=== PATIENT | female | born 1965 | race African-American/Black ===

== ENCOUNTER 2019-01-06 15:13 | Emergency (ER) | payer SELFPAY ==
[2019-01-06] MEDS ORDERED: ONDANSETRON HCL INJ/PF 4 MG/2 ML SDV IV ONE (19:38)
[2019-01-06] MEDS ORDERED: NORMAL SALINE 1000 ML 1,000 ML IV ONE (19:38)
--- NOTE | 2019-01-06 19:39 | ER Document Report ---
ED Medical Screen (RME) - General Chief Complaint: Nausea/Vomiting Stated Complaint: NAUSEA Time Seen by Provider: 01/06/19 19:33 Primary Care Provider: KENNETH BLAKE [Primary Care Provider] - Follow up as needed TRAVEL OUTSIDE OF THE [place] IN LAST 30 DAYS: No - HPI Notes: 01/06/19 19:38 Patient is a 53-year-old female that presents to the emergency department for chief complaint of diarrhea, nausea, vomiting and abdominal pain. Patient reports diarrhea from December 23 - December 26. The diarrhea has now stopped and she has developed nausea and vomiting. She reports poor oral intake and decreased appetite. She was seen at an outside facility yesterday and states she had blood work done. She reports they told her she had thyroid disorder but she is not sure what that means and they did not prescribe her medicine for that. She also states they gave her Phenergan which is not helping. She is here for a second opinion. ROS: GENERAL: Denies fever of chills CV: Denies chest pain PHYSICAL EXAMINATION: GENERAL: Well-appearing, well-nourished and in no acute distress. HEAD: Atraumatic, normocephalic. EYES: Pupils equal round extraocular movements intact, conjunctiva are normal. ENT: Nares patent NECK: Normal range of motion LUNGS: No respiratory distress Musculoskeletal: Normal range of motion NEUROLOGICAL: Normal speech, normal gait. PSYCH: Normal mood, normal affect. MDM: Patient seen and examined for rapid initial assessment. Vital signs reviewed. A comprehensive ED assessment and evaluation of the patient, analysis of test results and completion of the medical decision making process will be conducted by additional ED providers. - Related Data Allergies/Adverse Reactions: tramadol Adverse Reaction (Verified 01/06/19 19:31) Past Medical History Renal/ Medical History: Denies: Hx Peritoneal Dialysis Physical Exam - Vital signs Vitals: Temp Pulse Resp BP Pulse Ox 98.4 F 76 17 113/68 100 01/06/19 15:29 01/06/19 15:29 01/06/19 15:29 01/06/19 15:29 01/06/19 15:29 Course - Vital Signs Vital signs: Temp Pulse Resp BP Pulse Ox 98.4 F 76 17 113/68 100 01/06/19 15:29 01/06/19 15:29 01/06/19 15:29 01/06/19 15:29 01/06/19 15:29 Doctor's Discharge - Discharge Referrals: LOCALMD,NO [Primary Care Provider] - Follow up as needed
[2019-01-06 20:27] LABS: ABSOLUTE BASOPHILS # (AUTO) 0.1 10^3/uL (0.0-0.2); ABSOLUTE EOSINOPHILS # (AUTO) 0.1 10^3/uL (0.0-0.6); ABSOLUTE MONOCYTES (AUTO) 1.4 10^3/uL (0.1-1.4); ABSOLUTE NEUT (AUTO) 11.7 10^3/uL (1.7-8.2); BASOPHILS % (AUTO) 0.5 % (0-2); EOSINOPHILS % (AUTO) 0.5 % (0-6); HEMATOCRIT 45.1 % (36.0-47.0); HEMOGLOBIN 14.9 g/dL (12.0-15.5); LYMPHOCYTES % (AUTO) 18.5 % (13-45); MEAN CORPUSCULAR HEMOGLOBIN 26.6 pg (27.0-33.4); MEAN CORPUSCULAR VOLUME 81 fl (80-97); MONOCYTES % (AUTO) 8.6 % (3-13); PLATELET COUNT 301 10^3/uL (150-450); RED BLOOD COUNT 5.61 10^6/uL (3.72-5.28); RED CELL DISTRIBUTION WIDTH 13.1 % (11.5-14.0); SEGMENTED NEUTROPHILS % (AUTO) 71.9 % (42-78); TOTAL CELLS COUNTED % (AUTO) 100 %; WHITE BLOOD COUNT 16.2 10^3/uL (4.0-10.5)
[2019-01-06 20:43] LABS: ALANINE AMINOTRANSFERASE 39 U/L (9-52); ALBUMIN 4.4 g/dL (3.5-5.0); ALKALINE PHOSPHATASE 95 U/L (38-126); ANION GAP 14 (5-19); ASPARTATE AMINO TRANSFERASE 24 U/L (14-36); BILIRUBIN,DIRECT 0.4 mg/dL (0.0-0.4); BILIRUBIN,TOTAL 1.3 mg/dL (0.2-1.3); BLOOD UREA NITROGEN 40 mg/dL (7-20); CALCIUM 11.1 mg/dL (8.4-10.2); CARBON DIOXIDE 25 mmol/L (22-30); CHLORIDE 97 mmol/L (98-107); GLUCOSE 107 mg/dL (75-110); LIPASE 122.3 U/L (23-300); POTASSIUM 4.6 mmol/L (3.6-5.0); SODIUM 136.3 mmol/L (137-145); TOTAL PROTEIN 7.6 g/dL (6.3-8.2)
[2019-01-06 22:33] LABS: APPEARANCE,URINE SLIGHTLY-CLOUDY; BILIRUBIN,URINE NEGATIVE (NEGATIVE); COLOR,URINE YELLOW; GLUCOSE, URINE NEGATIVE (NEGATIVE); KETONES,URINE NEGATIVE (NEGATIVE); LEUKOCYTE ESTERASE,URINE LARGE (NEGATIVE); NITRITE,URINE NEGATIVE (NEGATIVE); PROTEIN,URINE NEGATIVE (NEGATIVE); URINE SPECIFIC GRAVITY 1.017; UROBILINOGEN,URINE NEGATIVE mg/dL (<2.0)
[2019-01-06 23:14] LABS: FREE T3 > 22.80 pg/mL (2.77-5.27); FREE T4 (FREE THYROXINE) > 6.99 ng/dL (0.78-2.19)
--- NOTE | 2019-01-07 01:39 | RADIOLOGY REPORT (SQ) ---
EXAM DESCRIPTION: CT HEAD WITHOUT IV CONTRAST COMPLETED DATE/TME: 01/06/2019 23:42 CLINICAL HISTORY: 53 years, Female, vomiting COMPARISON: None Available. Technique: Contiguous axial images of the brain were obtained without the administration of intravenous contrast. Coronal and sagittal reformats obtained and reviewed. This exam was performed according to our departmental dose-optimization program which includes use of Automated Exposure Control, adjustment of the mA and/or kV according to patient size and/or use of iterative reconstruction technique. Findings: Brain: No hemorrhage. No territorial infarct. No mass effect. No herniation. Ventricles: Within normal limits for patient's age. Bones: No acute osseous abnormality. Paranasal sinuses: Unremarkable. Mastoid air cells: Unremarkable. Soft tissues: No acute abnormality. IMPRESSION: No acute intracranial abnormalities.
--- NOTE | 2019-01-07 02:21 | RADIOLOGY REPORT (SQ) ---
EXAM DESCRIPTION: US HEAD NECK SOFT TISSUE COMPLETED DATE/TME: 01/06/2019 23:42 CLINICAL HISTORY: 53 years Female, hyper thyroid Comparison: None. LIMITATIONS: None. FINDINGS: Enlarged heterogeneous thyroid includes a 6.0 x 2.1 x 2.4 cm right thyroid lobe, 6.1 x 2.4 x 2.7 cm left thyroid lobe, a 0.6 cm thick isthmus. Indeterminate thyroid nodules. Recommend comparison with prior exams or fine-needle aspiration biopsy of the followin.8 cm x 0.7 x 0.7 solid, partially calcified, echogenic nodule of the right thyroid lobe. 1.8 cm x 1.6 x 1.1 complex lesion of the left mid thyroid lobe. 1.3 cm x 1.2 x 1.0 complex lesion of the inferior left thyroid lobe. IMPRESSION: Indeterminate thyroid nodules. Recommend comparison with prior exams or fine-needle aspiration biopsy of the followin. A 0.8 cm solid nodule of the right thyroid lobe. 2. A 1.8 cm complex lesion of the left mid thyroid lobe. 3. A 1.3 cm complex lesion of the inferior left thyroid lobe.
[2019-01-07] MEDS ORDERED: METHIMAZOLE 5 MG TABLET PO ONE (02:55)
[2019-01-07] MEDS ORDERED: CEPHALEXIN 500 MG CAPSULE PO ONE (03:03)
--- NOTE | 2019-01-07 03:06 | ER Document Report ---
ED General - General Chief Complaint: Nausea/Vomiting Stated Complaint: NAUSEA Time Seen by Provider: 01/06/19 19:33 Notes: Patient is a 53-year-old female who presents with complaint of nausea and diarrhea. She had this ongoing for a few weeks. She is also felt just generalized weakness which is progressively worsened as well. She was seen at an another ER approximately week ago. At that time she was told that she has hyperthyroidism. I encouraged her to follow-up closely with her primary care doctor. She has an appointment with her primary care doctor this coming week. She denies fevers. She says that she is just concerned with this recent diagnosis of her thyroid and the fact that her diarrhea is continued. She says her diarrhea is a combination of loose and watery stools. She says she will occasionally have just mild palpitations but currently is not having any. She said when she has palpitations they are very brief and says they go away if she just relaxes. No fevers. No altered mental status. TRAVEL OUTSIDE OF THE [place] IN LAST 30 DAYS: No - Related Data Allergies/Adverse Reactions: tramadol Adverse Reaction (Verified 01/06/19 19:31) Past Medical History - Social History Smoking Status: Unknown if Ever Smoked Frequency of alcohol use: None Drug Abuse: None Family History: Reviewed & Not Pertinent Patient has suicidal ideation: No Patient has homicidal ideation: No - Past Medical History Cardiac Medical History: Reports: Hx Hypertension Renal/ Medical History: Denies: Hx Peritoneal Dialysis Past Surgical History: Reports: Hx Orthopedic Surgery - left shoulder Review of Systems - Review of Systems Notes: My Normal Review Basic REVIEW OF SYSTEMS: CONSTITUTIONAL : Denies fever, chills, or sweats. EENT: Denies eye, ear, throat, or mouth pain or symptoms. Denies nasal or s inus congestion. RESPIRATORY: Denies cough, cold, or chest congestion. Denies shortness of breath, difficulty breathing, or wheezing. GASTROINTESTINAL: Denies abdominal pain. Diarrhea. Some nausea. GENITOURINARY: Dysuria starting today. MUSCULOSKELETAL: Denies neck or back pain or joint pain or swelling. SKIN: Denies rash or skin lesions. NEUROLOGICAL: Denies altered mental status or loss of consciousness. Denies headache. Denies weakness or paralysis or loss of use of either side. Denies problems with gait or speech. Denies sensory or motor loss. ALL OTHER SYSTEMS REVIEWED AND NEGATIVE. Physical Exam - Vital signs Vitals: Temp Pulse Resp BP Pulse Ox 98.4 F 76 17 113/68 100 01/06/19 15:29 01/06/19 15:29 01/06/19 15:29 01/06/19 15:29 01/06/19 15:29 - Notes Notes: General Appearance: Well nourished, alert, cooperative, no acute distress, no o bvious discomfort. Not septic or toxic appearing. Vitals: reviewed, See vital signs table. Head: no swelling or tenderness to the head Eyes: PERRL, EOMI, Conjuctiva clear Mouth: No decreasd moisture Throat: No tonsillar inflammation, No airway obstruction, No lymphadenopathy Neck: Supple, no neck tenderness, some thyromegaly on exam. Lungs: No wheezing, No rales, No rhonci, No accessory muscle use, good air exchange bilaterally. Heart: Normal rate, Regular rythm, No murmur, no rub Abdomen: Normal BS, soft, No rigidity, No abdominal tenderness, No guarding, no rebound, no abdominal masses, no organomegaly Extremities: good pulses in all extremities, no swelling or tenderness in the extremities, no edema. Skin: warm, dry, appropriate color, no rash Neuro: speech clear, oriented x 3, normal affect, responds appropriately to questions. 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 She is not tachycardic. Her vital signs are normal. Overall she looks well. She says she occasionally have some slight palpitations but this is rare. I did consult the [facility] consult line and spoke with the peripatologist, Dr. Hicks. He recommends that the patient is not actively having tachycardia at this time then we can hold off on propranolol and he recommends starting methimazole. He recommends close follow-up with their primary care doctor this coming week. Patient Jesus has appointment scheduled with her primary care doctor this coming week. I informed her of the plan and she is agreeable to it. I informed her that she should return to ER immediately if she has any worsening of her symptoms such as prolonged palpitations, fevers, confusion, or if she feels unwell. Patient agrees with plan will be discharged home. Patient does have some dysuria as well as has some evidence of infection in urine therefore I will placed on Keflex. Dictation of this chart was performed using voice recognition software; therefore, there may be some unintended grammatical errors. - Vital Signs Vital signs: Temp Pulse Resp BP Pulse Ox 98.5 F 97 16 136/69 H 99 01/07/19 01:03 01/07/19 01:03 01/07/19 01:03 01/07/19 01:03 01/07/19 01:03 - Laboratory Result Diagrams: 01/06/19 20:10 01/06/19 20:10 Laboratory results interpreted by me: 01/06/19 01/06/19 01/06/19 15:23 20:10 20:10 WBC 16.2 H RBC 5.61 H MCH 26.6 L Absolute Neutrophils 11.7 H Sodium 136.3 L Chloride 97 L BUN 40 H Calcium 11.1 H TSH Free T4 Free T3 pg/mL Urine Blood SMALL H Ur Leukocyte Esterase LARGE H 01/06/19 01/06/19 20:10 20:10 WBC RBC MCH Absolute Neutrophils Sodium Chloride BUN Calcium TSH < 0.01 L Free T4 > 6.99 H Free T3 pg/mL > 22.80 H Urine Blood Ur Leukocyte Esterase Discharge - Discharge Clinical Impression: Hyperthyroidism, Thyroid nodule Condition: Good Disposition: HOME, SELF-CARE Additional Instructions: I suspect that most likely your elevated thyroid hormone levels is contributing to why you are having diarrhea. I spoke with peripatologist at [facility]. He recommends placing you on methimazole. Please start the medication as 1 tablet 2 times a day. Once your thyroid function has stabilized then the medication will likely be decreased to once a day. It is very important that your doctor recheck your thyroid function on Wednesday. If you start having frequent palpitations or feel like your heart is racing for prolonged period time then he should return to the ER for reevaluation. Also if you have fevers or confusion or feel unwell you should return to ER immediately. Your ultrasound did show th at you have some thyroid nodules. These need to be further assessed. I have printed off a copy of your ultrasound results to take with you to your appointment with your doctor. Again please have a low threshold to return to ER if you feel that your symptoms are worsening. Your urinalysis did show evidence of some infection which would make sense with your dysuria. Please take the antibiotic as prescribed. Prescriptions: Cephalexin Monohydrate [Keflex 500 mg Capsule] 500 mg PO BID 5 Days #10 capsule Methimazole [Northyx] 5 mg PO BID #20 tablet
[2019-01-07 05:05] VITALS: BP 120/68
== END 2019-01-07 04:50 | disposition home or self-care (01) ==
LOC: ER 15:13
DX: E05.20 Thyrotoxicosis with toxic multinodular goiter without thyrotoxic crisis or storm (principal); R11.2 Nausea with vomiting, unspecified; R19.7 Diarrhea, unspecified; R53.1 Weakness; I10 Essential (primary) hypertension
CPT/HCPCS: 99284; 96361; 96374; 36415; 84439; 83690; 84443; 85025; 80053; 81001; 84481; 76536; 70450; J2405; J7030